=== PATIENT | female | born 1960 | race Caucasian/White ===

== ENCOUNTER 2018-04-18 08:38 | Emergency (ER) | payer OTHER ==
[2018-04-18] MEDS: KETOROLAC 30 MG INJ IM (11:08)
[2018-04-18] MEDS: morphine LIQ (10 MG/5 ML) CUP PO (11:08)
== END 2018-04-18 13:55 | disposition home or self-care (01) ==
LOC: FTE 08:38
DX: S52.121A Displaced fracture of head of right radius, initial encounter for closed fracture (principal); S52.122A Displaced fracture of head of left radius, initial encounter for closed fracture; W18.39XA Other fall on same level, initial encounter; Y92.9 Unspecified place or not applicable
CPT/HCPCS: 29125; 73090; 73090-RT; 73130-LT; 73130-RT; 73562-50; 96372; 99284-25